=== PATIENT | male | born 1980 | race Hispanic/Latino ===

== ENCOUNTER 2018-09-30 22:12 | Emergency (ER) | payer OTHER ==
[2018-09-30] MEDS ORDERED: DiphenhydrAMINE HCL 25 MG/10 ML ELIXIR UDCUP ONE (22:35)
[2018-09-30] MEDS ORDERED: DEXAMETHASONE SOD PHOSPHATE 10MG/ML 1ML VIAL ONE (23:13)
[2018-09-30] MEDS ORDERED: FAMOTIDINE 20MG TAB 20 MG TAB ONE (23:38)
== END 2018-09-30 23:46 | disposition home or self-care (01) ==
LOC: EDH 22:12
DX: T63.481A Toxic effect of venom of other arthropod, accidental (unintentional), initial encounter (principal); S90.562A Insect bite (nonvenomous), left ankle, initial encounter; S90.561A Insect bite (nonvenomous), right ankle, initial encounter; S40.862A Insect bite (nonvenomous) of left upper arm, initial encounter; S40.861A Insect bite (nonvenomous) of right upper arm, initial encounter; L08.9 Local infection of the skin and subcutaneous tissue, unspecified; Y92.89 Other specified places as the place of occurrence of the external cause
CPT/HCPCS: 96372; 99283; J1100